=== PATIENT | female | born 1965 | race Caucasian/White ===

== ENCOUNTER 2025-04-29 09:18 | Outpatient (AMB) | payer OTHER, SELFPAY ==
--- NOTE | 2025-04-29 09:39 | MHC.OFFVIS ---
Intake Visit Reasons: 6 Months F/U Allergies No Known Allergies Allergy (Verified 04/26/25 11:12) HPI Comments Details: 59 y/o woman with severe GERD treated with H2 maribel and amitryptiline, h/o cervical spine surgery at [facility] in 2014, cervical spondyloarthritis, and left arm radicular pain syndrome. She was still having left-sided neck pain and sometime tingling and numbness and left arm and sometime in left leg also. Overall cyclobenzaprine was helping. [facility] Medical History (Updated 04/29/25 @ 09:48 by Hesham Arana MD) Obesity Type II diabetes mellitus Carpal tunnel syndrome of left wrist Peroneal neuropathy GERD (gastroesophageal reflux disease) Cervical spondyloarthritis Cervical radicular pain Stress Surgical History (Updated 04/26/25 @ 11:11 by Malu Boston MA) S/P cervical discectomy Review of Systems Const Details: Numbness and tinlging and pain in left arm and sometimes in left leg Physical Exam Neuro Other: Mental Status: Alert and oriented to person, place, and time. Normal attention. Normal spontaneous speech, fluency, and comprehension. No obvious issues with mood and memory. Affect is appropriate. Cranial Nerves: CN II: Visual connors full to confrontation, visual acuity intact. CN III, IV, : Pupils equal, round, reactive to light and accommodation. Extraocular movements are normal. CN V: Facial sensation is normal. CN VII: Facial movements symmetrical. CN VIII: Hearing intact to bedside conversation is normal. CN IX, X: Palate elevates symmetrically. CN XI: Shoulder shrug and head turn symmetrical. CN XII: Tongue midline without atrophy or fasciculations. Mild left deltoid and triceps weakness, ?give away type. DTRs are 1+ Extrapyramidal: Full facial expressions and blinking. No rigidity. Movements are appropriate with no tremor or abnormality. Speech: Normal; no dysarthria or tremor. Assessment & Plan Assessment & Plan (1) Cervical spondyloarthritis: Comment: NCV/EMG UE 07/01/17 Mild carpal tunnel syndrome on the right. NCV/EMG LE 05/29/17 Mild left peroneal neuropathy in the lower extremities. MRI C spine at [facility] in March 2015: straight curvature, mild to mod spondylitis mid cervical stenosis but no definite root compression. MRI C spine at [facility] in Nov 2015: s/p cervical decompressive surgery. No root compression or canal stenosis. Code(s): M47.812 - Spondylosis without myelopathy or radiculopathy, cervical region Category: Medical Qualifiers: Spinal osteoarthritis complication: without myelopathy or radiculopathy Qualified Code(s): M47.812 - Spondylosis without myelopathy or radiculopathy, cervical region (2) Cervical radicular pain: Code(s): M54.12 - Radiculopathy, cervical region Category: Medical Plan Impression: Chronic left sided neck and arm pain suggestive of cervical radicular syndrome with imgaing revealing spondyloarthritis type picture Rec: a: Conservative management b: Light arm and neck exercise regimen c: Cyclobenperine 10mg at night Medications: Refilled cyclobenzaprine 10 mg PO BEDTIME 90 tabs 1RF Coding Level of Care Code Est Pt Level 4 (23570) Diagnoses Spondylosis of cervical region without myelopathy or radiculopathy M47.812 Spinal osteoarthritis complication: without myelopathy or radiculopathy Cervical radicular pain M54.12
--- OUTSIDE RECORDS SUMMARY | 2025-04-29 09:46 | XMS_ITS ---
Author Name [facility] Organization Unknown History of Medication Use Medication Directions Dispensed Refills Start Date End Date Stat us citalopram (CeleXA) 20 MG tablet Take 20 mg by mouth daily. active Allergies Allergen Reaction Severity Comment Documented Date Source Statu s ICOSAPENT ETHYL OTHER (SEE COMMENTS) Dizziness 3 CCT active Problems Problem Status Onset Date Problem Type Date of Resoluti on Source Eustachian tube dysfunction, left active EncounterDiagnosisAct H HCCT Encounters Encounter Type Encounter Reason Primary Diagnosis Location Date Ambulatory Other specified disorders of eustachian tube, left ear [facility] 11/11/2022 Ambulatory Acute bronchitis , unspecified [facility] 10/27/2021 Care Team Organization Name Specialty Phone Email Start Date End Da te [facility] Puneet Hurley [facility] 11/11/2022 023 [facility] NO PCP Primary Care 11/11/2022 11/11/2022 [facility] PUNEET HURLEY Primary [facility] 11/11/2022 [facility] 10/28/2021 [facility] 10/27/2021 10/27/2021
--- OUTSIDE RECORDS SUMMARY | 2025-04-29 09:46 | XMS_ITS | Clinical Summary ---
Author Organization [facility] Address [address] [id number] Phone Care Team Providers Care Mri Tech Name Role Phone Puneet Hurley NP Primary Care Provider [phone] Allergies Active Allergy Reactions Criticality Noted Date Comments Icosapent Ethyl (Epa Ethyl Yeny) (Fish) Other (see comments) 09/27/2022 Other reaction(s): dizziness Dizziness Medications amitriptyline (ELAVIL) 100 MG tablet 05/13/2023 Active citalopram (CeleXA) 20 MG tablet 05/13/2023 Active cyclobenzaprine (FLEXERIL) 10 MG tablet 05/09/2023 Active Farxiga 10 MG tablet 07/03/2023 Active fenofibrate micronized (LOFIBRA) 134 MG capsule 05/09/2023 Active losartan (COZAAR) 50 MG tablet 06/25/2023 Active pantoprazole (PROTONIX) 40 MG EC tablet 05/15/2023 Active pregabalin (LYRICA) 75 MG capsule TAKE 1 CAPSULE BY MOUTH TWICE A DAY FOR 90 DAYS 06/28/2023 Active rosuvastatin (CRESTOR) 10 MG tablet 05/09/2023 Active Mounjaro 7.5 MG/0.5ML solution pen-injector 05/23/2023 Active losartan (Cozaar) 25 MG tablet Take 1 tablet (25 mg total) by mouth 1 (one) time each day 90 tablet 3 09/30/2024 6 Active Active Problems Problem Noted Date Diagnosed Date Anemia 07/08/2023 07/08/2023 Backache 07/08/2023 07/08/2023 Gastroesophageal reflux disease 07/08/2023 07/08/2023 Hypertensive disorder 07/08/2023 07/08/2023 Irritable bowel syndrome 07/08/2023 023 Sleep apnea 07/08/2023 07/08/2023 Immunizations Immunization Administration Dates Next Due Influenza Whole 06/25/2020 Pfizer SARS-COV-2 12/27/2020,12/05/2020 Family History Medical History Relation Comments Heart disease Father Relation Status Comments Father Social History Tobacco Use Types Packs/Day Years Used Date Smoking Tobacco: Never Passive Smoke Exposure: Never Smokeless Tobacco: Never Tobacco Cessation:Counseling Given: Not Answered Alcohol Use Standard Drinks/Week Comments Never 0 (1 standard drink = 0.6 oz pur e alcohol) Comments Unknown Sex and Gender Information Value Date Recorded Sex Assigned at Not on file Legal Sex Female 11:50 AM EDT Gender Identity Not on file Sexual Orientation Not on file Last Filed Vital Signs Vital Sign Reading Time Taken Comments Blood Pressure 124/82 09/30/2024 2:25 PM EST Pulse 88 09/30/2024 2:25 PM EST Temperature - - Respiratory Rate - - Oxygen Saturation 98% 09/30/2024 2:25 PM EST Inhaled Oxygen Concentration - - Weight 85.3 kg (188 lb) 09/30/2024 2:25 PM EST Height - - Body Mass Index - - Plan of Treatment Upcoming Encounters Date Type Department Care Team (Late st Contact Info) Description 10/04/2025 1:00 PM EST Office Visit [facility] [address] [phone] Som Vera MD [address] [phone] Health Maintenance Due Date Last Done Comments Breast Cancer Screening 1964 Pneumococcal Vaccine: 50+ Ye ars (1 of 2 - PCV) 1983 Colorectal Cancer Screening: Annual FOBT 2013 Colorectal Cancer Screening: Colonoscopy 2013 Colorectal Cancer Screening: Sigmoidoscopy 2013 Diabetes: Hemoglobin A1C 07/08/2023 Diabetes: Ophthalmology Exam 07/08/2023 Diabetes: Pedal Pulse Checked 07/08/2023 Diabetes: Sensory Foot Exam 07/08/2023 Diabetes: Visual Foot Exam 07/08/2023 Influenza Vaccine (#1) 2025 06/25/2020 Hepatitis B Vaccine Aged Out No longe r eligible based on patient's age to complete this topic Insurance [employer] Care Teams Mri Tech Relationship Specialty Start Date End Date Puneet Hurley NP [address] [place] [address] PCP - General Nurse Practitioner 07/08/23
--- OUTSIDE RECORDS SUMMARY | 2025-04-29 09:47 | XMS_ITS | Patient Health Record ---
Author Organization [facility] [address] Address [address] [place] [address] Care Team Providers Care Health Manager Name Role Phone ERIC RODAS Unavailable [phone] Allergies Allergen (clinical drug ingredient) Drug/Non Drug Allergy documented on EMR Reaction Allergy Type Onset Date Status icosapent ethyl Vascepa dizziness Drug Allergy A ctive Results Component Value Reference Range Notes Comp. Metabolic Panel (14)- Reviewed date:07/08/2024 04:59:38 PM Interpretation: Performing Lab:[facility], [address] [place] [address], [place], Phone - [phone], Director - Rob Notes/Report: Glucose 91 70-99 mg/dL BUN 17 6-24 mg/dL Creatinine 1.16 0.57-1.00 mg/dL eGFR 54 >59 mL/min/1.73 BUN/Creatinine Ratio 15 9-23 Sodium 143 134-144 mmol/L Potassium 4.3 3.5-5.2 mmol/L Chloride 101 96-106 mmol/L Carbon Dioxide, Total 27 20-29 mmol/L Calcium 9.8 8.7-10.2 mg/dL Protein, Total 7.5 6.0-8.5 g/dL Albumin 4.4 3.8-4.9 g/dL Globulin, Total 3.1 1.5-4.5 g/dL Bilirubin, Total 0.4 0.0-1.2 mg/dL Alkaline Phosphatase 84 44-121 IU/L AST (SGOT) 21 0-40 IU/L ALT (SGPT) 7 0-32 IU/L Lipid Panel-[id number] Reviewed date:07/08/2024 04:59:38 PM Interpretation: Performing Lab:[facility] [place], [address] [place] [address], Phone - [phone], Director - MDJodry Notes/Report: Cholesterol, Total 125 100-199 mg/dL Triglycerides 96 0-149 mg/dL HDL Cholesterol 61 >39 mg/dL VLDL Cholesterol Tristen 18 5-40 mg/dL LDL Chol Calc (NIH) 46 0-99 mg/dL Calcitriol(1,25 di-OH Vit D) -[id number] Reviewed date:07/08/2024 04:59:38 PM Interpretation: Performing Lab:[facility] [place], [address] [place] [address], [place], Phone - [phone], Director - MDJodry Notes/Report: Calcitriol(1,25 di-OH Vit D) 59.0 24.8-81.5 pg /mL CBC With Differential/Platel et-[id number] Reviewed date:07/08/2024 04:59:38 PM Interpretation: Performing Lab:[facility] [place], [address] [place] [address], Phone - [phone], Director - MDNubiay Notes/Report: WBC 4.9 3.4-10.8 x10E3/uL RBC 4.87 3.77-5.28 x10E6/uL Hemoglobin 13.2 11.1-15.9 g/dL Hematocrit 41.9 34.0-46.6 % MCV 86 79-97 fL MCH 27.1 26.6-33.0 pg MCHC 31.5 31.5-35.7 g/dL RDW 14.0 11.7-15.4 % Platelets 314 150-450 x10E3/uL Neutrophils 40 Not Estab. % Lymphs 48 Not Estab. % Monocytes 8 Not Estab. % Eos 3 Not Estab. % Basos 1 Not Estab. % Neutrophils (Absolute) 2.0 1.4-7.0 x10E3/uL Lymphs (Absolute) 2.3 0.7-3.1 x10E3/uL Monocytes(Absolute) 0.4 0.1-0.9 x10E3/uL Eos (Absolute) 0.2 0.0-0.4 x10E3/uL Baso (Absolute) 0.1 0.0-0.2 x10E3/uL Immature Granulocytes 0 Not Estab. % Immature Grans (Abs) 0.0 0.0-0.1 x10E3/uL [id number] Reviewed date:07/08/2024 04:59:38 PM Interpretation: Performing Lab:[facility] [address], Phone - [phone], Director - Rob Notes/Report: TSH 2.150 0.450-4.500 uIU/mL Urinalysis, Complete-[id number] Reviewed date:07/08/2024 04:59:38 PM Interpretation: Performing Lab:[facility] [place], [address] [place] [address], Phone - [phone], Director - Rob Notes/Report: Specific Dawson 1.021 1.005-1.030 pH 6.0 5.0-7.5 Urine-Color Yellow Yellow Appearance Clear Clear WBC Esterase 2+ Negative Protein Trace Negative/Trace Glucose 3+ Negative Ketones Negative Negative Occult Blood Negative Negative Bilirubin Negative Negative Urobilinogen,Semi-Qn 0.2 0.2-1.0 mg/dL Nitrite, Urine Negative Negative Microscopic Examination See below: Micr oscopic was indicated and was performed. WBC 6-10 0 - 5 /hpf RBC None seen 0 - 2 /hpf Epithelial Cells (non renal) 0-10 0 - 10 /hpf Casts None seen None seen /lpf Bacteria None seen None seen/Few Hemoglobin [id number] Reviewed date:07/08/2024 04:59:38 PM Interpretation: Performing Lab:[facility] [place], [address] [place] [address], Phone - [phone], Director - Rob Notes/Report: Hemoglobin A1c 6.2 4.8-5.6 % . Prediabetes: 5.7 - 6.4 Diabetes: >6.4 Glycemic control for adults with diabetes: <7.0 DR Murdock Routine 2 Views Reviewed date:05/06/2024 09:59:04 AM Interpretation: Performing Lab: Notes/Report: Original Ordering Provider: ERIC RODAS NP [facility] Reason For Referral No Information Medications Medication SIG (Take, Route, Frequency, Duration) Notes Start Date End Date Status FreeStyle Lite Test - CHECK BLOOD SUGAR DAILY DIRECTED Active oxyCODONE HCl 5 MG 1 tablet as needed p rn severe pain Orally every 4-6 hrs; Duration: 10 days 05/12/2024 Not-Taking Albuterol Sulfate HFA 108 (90 Base) MCG/ACT INHALE 1 PUFF INTO THE LUNGS EVERY 4 HOURS NEEDED FOR 30 DAYS; Duration: 30 Active metFORMIN HCl 1000 mg TAKE 1 TABLET TWIC E A DAY WITH MEALS Not-Taking Mounjaro 7.5 MG/0.5ML 7.5mg Subcutaneous weekly; Duration: 30 days Active Mounjaro 7.5 MG/0.5ML 7.5mg Subcutaneous weekly; Duration: 30 days Not-Taking Fenofibrate 134 MG 1 capsule with a marcos l Orally Once a day; Duration: 90 days Active Mounjaro 5 MG/0.5ML 5mg Subcutaneous weekly; Duration: 90 days 10/07/2023 Not-Taking Mounjaro 7.5 MG/0.5ML INJECT 7.5 MG UNDE R THE SKIN WEEKLY Active FreeStyle Lancets - CHECK BLOOD SUGAR IN VITRO DAILY Active Rosuvastatin Calcium 10 mg TAKE 1 TABLET DAILY Active Farxiga 10 mg TAKE 1 TABLET DAILY Active Citalopram Hydrobromide 20 mg TAKE 1 TABLET DAILY Active Fenofibrate Micronized 134 mg TAKE 1 CAPSULE DAILY WITH A MEAL Active Pregabalin 75 mg TAKE 1 CAPSULE TWICE A DAY 04/28/2025 Active LORazepam 0.5 MG 1 tablet 30 minutes prior to diagnostic procedure or flying, may repeat x 1 per effect 30 minutes later Orally Once a day; Duration: 1 days 03/24/2025 Active Losartan Potassium 25 MG 1 tablet Orally Once a day Not-Taking Cyclobenzaprine HCl 10 MG 1 tablet at be dtime as needed Orally Once a day Active Amitriptyline HCl 100 MG 1 tablet at bed time Orally Once a day Active FreeStyle Lite Test Strips as directed check blood sugar Dx:e11.9 in vitro daily; Duration: 90 days 02/02/2022 Active Mounjaro 10 MG/0.5ML INJECT 10 MG UNDER THE SKIN WEEKLY Active Pantoprazole Sodium 40 MG 1 tablet Orall y Once a day Active Social History Tobacco Use: Social History Observation Description Date Details (start date - stop date) Never Smoker NA - NA Tobacco Use/Smoking Question Answer Notes Are you a nonsmoker Alcohol Screen (Audit-C) Question Answer Notes Did you have a drink contain ing alcohol in the past year? Yes How often did you have a dri nk containing alcohol in the past year? 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) Active confirmed Problem Vitamin D deficiency (69808351) Vitamin D deficiency, unspecified (E55.9) Active confirmed Problem Obesity due to exces s calories (084446780) Other obesity due to excess calories (E66.09) Active confirmed Problem Tinnitus (45738781) Tinnitus, un specified ear (H93.19) Active confirmed Problem Essential hypertension (84921371) Essential (primary) hypertension (I10) Active confirmed Problem Adult health examination (594803764) Encounter for general adult medical examination without abnormal findings (Z00.00) Active confirmed Problem Hyperlipidaemia (27828885) Hyperlipidemia, unspecified hyperlipidemia type (E78.5) Active confirmed Problem Anxiety (10266021) Anxiety (F41.9) Active confi rmed Problem Hypothyroidism (47340044) Hypothyroidism, unspecified type (E03.9) Active confirmed Problem Vitamin D deficiency (62168935) Vitamin D deficiency (E55.9) Active confirmed Problem Screening for malignant neoplasm of breast (645667471) Breast cancer screening by mammogram (Z12.31) Active confirmed Problem Type II diabetes mellitus without complication (215653057) Type 2 diabetes mellitus without complication, without long-term current use of insulin (E11.9) Active confirmed Problem Chronic kidney disease stage 3A (disorder) (468485200) Chronic kidney disease, stage 3a (N18.31) Active confirmed Problem Body mass index 30.0 0 to 34.99 (259663570375195) Body mass index [BMI] 33.0-33.9, adult (Z68.33) Active confirmed Problem Gastroesophageal reflux disease with esophagitis (disorder) (431700866) Gastroesophageal reflux disease with esophagitis without hemorrhage (K21.00) Active confirmed Problem Migraine without aura, not refractory (575265331) Migraine without aura and without status migrainosus, not intractable (G43.009) Active confirmed Problem Mild major depression, single episode (67782443) Current mild episode of major depressive disorder without prior episode (F32.0) Active confirmed Problem Bilateral tinnitus (5495458751466) Tinnitus of both ears (H93.13) Active confirmed Problem Hypertriglyceridemia (678174450) Hypertriglyceridemia (E78.1) Active confirmed Problem Body mass index 30+ - obesity (378609558) BMI 30.0-30.9,adult (Z68.30) Active confirmed Problem Avitaminosis D (87235663) Avitaminosis D (E55.9) Active confirmed Vital Signs Heart Rate 88 /min 02/03/2025 Blood pressure diastolic 66 mm Hg 02/03/2025 Oximetry 97 % 02/03/2025 Height 66 in 02/03/2025 Blood pressure systolic 110 mm Hg 02/03/2025 Weight 187 lbs 02/03/2025 BMI 30.18 kg/m2 02/03/2025 Encounters Encounter Location Date Provider Diagnosis [facility] [address] [address] 05/06/2024 ERIC RODAS 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 ; Other specified bacterial agents as the cause of diseases classified elsewhere B96.89 ; Psoas abscess, right K68.12 ; Peripherally inserted central catheter (PICC) in place Z45.2 ; Acute cough R05.1 and Acute COVID-[address] [facility] [address] [place] [address] 05/23/2024 ERIC RODAS Other specified bacterial agents as the cause of diseases classified elsewhere B96.89 ; 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 ; Psoas abscess, right K68.12 ; Peripherally inserted central catheter (PICC) in place Z45.2 and Acute COVID-19 U07.[address] [facility] [address] [place] [address] 06/27/2024 ERIC RODAS Other specified bacterial agents as the cause of diseases classified elsewhere B96.89 ; 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 ; Psoas abscess, right K68.12 and Peripherally inserted central catheter (PICC) in place Z45.2 [facility] [address] [address] 07/08/2024 ERIC RODAS Type 2 diabetes gus itus without complication, without long-term current use of insulin E11.9 ; Annual physical exam Z00.00 ; Migraine without aura and without status migrainosus, not intractable G43.009 ; Current mild episode of major depressive disorder without prior episode F32.0 ; Other obesity due to excess calories E66.09 ; Essential (primary) hypertension I10 ; Chronic kidney disease, stage 3a N18.31 ; Renal cyst N28.1 ; Peripherally inserted central catheter (PICC) in place Z45.2 ; Other specified bacterial agents as the cause of diseases classified elsewhere B96.89 ; 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 and Psoas abscess, right K68.12 [facility] [address] [address] 08/10/2024 ERIC RODAS Irritation of left e ye H57.89 [facility] [address] 10/08/2024 ERIC RODAS Type 2 diabetes gus itus without complication, without long-term current use of insulin E11.9 ; Migraine without aura and without status migrainosus, not intractable G43.009 ; Current mild episode of major depressive disorder without prior episode F32.0 ; Other obesity due to excess calories E66.09 ; Essential (primary) hypertension I10 ; Chronic kidney disease, stage 3a N18.31 ; Other specified bacterial agents as the cause of diseases classified elsewhere B96.89 ; 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 ; Psoas abscess, right K68.12 and Breast cancer screening by mammogram Z12.31 [facility] [address] [address] 02/03/2025 ERIC RODAS Type 2 diabetes gus itus without complication, without long-term current use of insulin E11.9 ; Migraine without aura and without status migrainosus, not intractable G43.009 ; Current mild episode of major depressive disorder without prior episode F32.0 ; Other obesity due to excess calories E66.09 ; Essential (primary) hypertension I10 ; Chronic kidney disease, stage 3a N18.31 ; 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 ; Encounter for examination of blood pressure without abnormal findings Z01.30 ; Breast cancer screening by mammogram Z12.31 and Encounter for screening for osteoporosis Z13.820 [facility] [address] 05/05/2024 ERIC [address]ORHOT [facility] [address] [place] [address] 05/05/2024 ERIC BORHOT [facility] [address] [place] [address] 05/06/2024 ERIC BORHOT [facility] [address] [place] [address] 05/19/2024 ERIC [place]ORHOT [facility] [address] [place] [address] 05/26/2024 ERIC BORHOT [facility] [address] [place] [address] 05/26/2024 ERIC BORHOT [facility] [address] [place] [address] 06/22/2024 ERIC BORHOT [facility] [address] [place] [address] 06/23/2024 ERIC BORHOT [facility] [address] [place] [address] 08/10/2024 ERIC BORHOT [facility] [address] [place] [address] 04/27/2025 ERIC BORHOT [facility] [address] [place] [address] 05/12/2024 ERIC BORHOT [facility] [address] [place] [address] 06/16/2024 ERIC BORHOT [facility] [address] [place] [address] 06/16/2024 ERIC BORHOT [facility] [address] [place] [address] 06/17/2024 ERIC BORHOT [facility] [address] [place] [address] 06/18/2024 ERIC BORHOT [facility] [address] [place] [address] 07/06/2024 ERIC BORHOT [facility] [address] [place] [address] 07/06/2024 ERIC BORHOT [facility] [address] [address] 07/06/2024 ERIC BORHOT [facility] [address] [address] 08/24/2024 ERIC RODAS Type 2 diabetes gus itus without complication, without long-term current use of insulin E11.9 [facility] [address] [address] 09/14/2024 ERIC BORHOT [facility] [address] [address] 09/14/2024 ERIC BORHOT [facility] [address] [address] 10/23/2024 ERIC RODAS Type 2 diabetes gus itus without complication, without long-term current use of insulin E11.9 [facility] [address] [address] 11/05/2024 ERIC ARMENDARIZHOT [facility] [address] [address] 03/24/2025 ERIC ARMENDARIZHOT [facility] [address] [address] 03/24/2025 ERIC BORHOT [facility] [address] [address] 04/28/2025 ERIC [facility]ARIZHOT [facility] [address] [address] 04/28/2025 ERIC RODAS Assessments Encounter Date Diagnosis (ICD Code) Assessment Notes Treatment Notes Treatment Clinical Notes Section Notes 05/06/2024 Other specified bacterial agents as the cause of diseases classified elsewhere (ICD-10 - B96.89) Continue IV vancomycin via PICC until June 10 Weekly CBC and CMP arrange through visiting nurses and infectious disease Given recent lengthy hospitalization we will get a chest x-ray to rule out pneumonia Respiratory PCR swab positive for acute COVID-19 Discussed supportive care and antivirals Of note, some information is being carried forward from prior records for informational purposes only and is being cited so that efficiency, safety and quality of the patient's care is not compromised This note was prepared using voice recognition software and direct typing Please excuse inadvertent cheesemaking laborer or typing errors, or uncorrected word substitutions Although every attempt has been made by the provider to proofread this document, occasional misspellings and typographical errors may still be present Due to the previous pandemic, and the use of personal protective equipment (PPE) This may decrease voice recognition accuracy Inadvertent cheesemaking laborer errors may occur 05/06/2024 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) Continue IV vancomycin via PICC until June 10 Weekly CBC and CMP arrange through visiting nurses and infectious disease Given recent lengthy hospitalization we will get a chest x-ray to rule out pneumonia Respiratory PCR swab positive for acute COVID-19 Discussed supportive care and antivirals Of note, some information is being carried forward from prior records for informational purposes only and is being cited so that efficiency, safety and quality of the patient's care is not compromised This note was prepared using voice recognition software and direct typing Please excuse inadvertent cheesemaking laborer or typing errors, or uncorrected word substitutions Although every attempt has been made by the provider to proofread this document, occasional misspellings and typographical errors may still be present Due to the previous pandemic, and the use of personal protective equipment (PPE) This may decrease voice recognition accuracy Inadvertent cheesemaking laborer errors may occur 05/23/2024 Other specified bacterial agents as the cause of diseases classified elsewhere (ICD-10 - B96.89) Continue IV 2 g of ceftriaxone which was recently switched from vancomycin via PICC until June 10 Weekly CBC and CMP arrange through visiting nurses and infectious disease Will be seeing infectious disease again on June 16, recently saw them on May 19 We will work on short-term disability paperwork Of note, some information is being carried forward from prior records for informational purposes only and is being cited so that efficiency, safety and quality of the patient's care is not compromised This note was prepared using voice recognition software and direct typing Please excuse inadvertent cheesemaking laborer or typing errors, or uncorrected word substitutions Although every attempt has been made by the provider to proofread this document, occasional misspellings and typographical errors may still be present Due to the previous pandemic, and the use of personal protective equipment (PPE) This may decrease voice recognition accuracy Inadvertent cheesemaking laborer errors may occur 06/27/2024 Other specified bacterial agents as the cause of diseases classified elsewhere (ICD-10 - B96.89) Continue IV cefazolin through PICC line Continue seeing ID outpatient with lab monitoring Short-term disability also paperwork was completed today Time spent 60 minutes Coordination of care, chart review, paperwork filled out and filed in EMR Of note, some information is being carried forward from prior records for informational purposes only and is being cited so that efficiency, safety and quality of the patient's care is not compromised This note was prepared using voice recognition software and direct typing Please excuse inadvertent cheesemaking laborer or typing errors, or uncorrected word substitutions Although every attempt has been made by the provider to proofread this document, occasional misspellings and typographical errors may still be present Due to the previous pandemic, and the use of personal protective equipment (PPE) This may decrease voice recognition accuracy Inadvertent cheesemaking laborer errors may occur 07/08/2024 Type 2 diabetes mellitus without complication, without long-term current use of insulin (ICD-10 - E11.9) Acute Concerns/Problem List: 07/08/2024 Will increase Mounjaro to 7.5 mg Excellent glycemic control with A1c of 6.2 Other labs are stable tommorow Scheduled for MRI of the spine to reassess intraspinal epidural abscess and osteomyelitis PICC line still in place likely will be DC'd soon as long as her antibiotics are completed per infectious disease Of note, some information is being carried forward from prior records for informational purposes only and is being cited so that efficiency, safety and quality of the patient's care is not compromised This note was prepared using voice recognition software and direct typing Please excuse inadvertent cheesemaking laborer or typing errors, or uncorrected word substitutions Although every attempt has been made by the provider to proofread this document, occasional misspellings and typographical errors may still be present Due to the previous pandemic, and the use of personal protective equipment (PPE) This may decrease voice recognition accuracy Inadvertent cheesemaking laborer errors may occur 08/10/2024 Irritation of left eye (ICD-10 - H57.89) She would benefit from a fluorescein and Pulido lamp exam to rule out abrasion Unlikely though I suspect irritation could be allergy component There is no overt signs of infection or hyperemia I discussed using some antihistamine eyedrops There is no visual loss No signs of iritis or Uveitis Should follow-up with eye doctor if not improving 08/24/2024 Type 2 diabetes mellitus without complication, without long-term current use of insulin (ICD-10 - E11.9) 10/08/2024 Type 2 diabetes mellitus without complication, without long-term current use of insulin (ICD-10 - E11.9) Acute Concerns/Problem List: 10/08/2024 Will increase to 10 mg of Mounjaro Excellent glycemic control, A1c today 6.0 CKD stable, losartan 25 mg as well as SGLT2 Followed by nephrology _update mammography please Of note, some information is being carried forward from prior records for informational purposes only and is being cited so that efficiency, safety and quality of the patient's care is not compromised This note was prepared using voice recognition software and direct typing Please excuse inadvertent cheesemaking laborer or typing errors, or uncorrected word substitutions Although every attempt has been made by the provider to proofread this document, occasional misspellings and typographical errors may still be present Due to the previous pandemic, and the use of personal protective equipment (PPE) This may decrease voice recognition accuracy Inadvertent cheesemaking laborer errors may occur 10/23/2024 Type 2 diabetes mellitus without complication, without long-term current use of insulin (ICD-10 - E11.9) 02/03/2025 Type 2 diabetes mellitus without complication, without long-term current use of insulin (ICD-10 - E11.9) Acute Concerns/Problem List: 02/03/2025 Cont.10 mg of Mounjaro Excellent glycemic control, A1c today 5.7 CKD stable, Farxiga 10mg Followed by nephrology _update bone density Hold off on losartan Mammography 11/2024, [facility], BIRADS-2 benign Will see her back in the fall with labs and a CPE Of note, some information is being carried forward from prior records for informational purposes only and is being cited so that efficiency, safety and quality of the patient's care is not compromised This note was prepared using voice recognition software and direct typing Please excuse inadvertent cheesemaking laborer or typing errors, or uncorrected word substitutions Although every attempt has been made by the provider to proofread this document, occasional misspellings and typographical errors may still be present Due to the previous pandemic, and the use of personal protective equipment (PPE) This may decrease voice recognition accuracy Inadvertent cheesemaking laborer errors may occur 02/03/2025 Migraine without aura and without status migrainosus, not intractable (ICD-10 - G43.009) Acute Concerns/Problem List: 02/03/2025 Cont.10 mg of Mounjaro Excellent glycemic control, A1c today 5.7 CKD stable, Farxiga 10mg Followed by nephrology _update bone density Hold off on losartan Mammography 11/2024, [facility], BIRADS-2 benign Will see her back in the fall with labs and a CPE Of note, some information is being carried forward from prior records for informational purposes only and is being cited so that efficiency, safety and quality of the patient's care is not compromised This note was prepared using voice recognition software and direct typing Please excuse inadvertent cheesemaking laborer or typing errors, or uncorrected word substitutions Although every attempt has been made by the provider to proofread this document, occasional misspellings and typographical errors may still be present Due to the previous pandemic, and the use of personal protective equipment (PPE) This may decrease voice recognition accuracy Inadvertent cheesemaking laborer errors may occur 10/08/2024 Migraine without aura and without status migrainosus, not intractable (ICD-10 - G43.009) Acute Concerns/Problem List: 10/08/2024 Will increase to 10 mg of Mounjaro Excellent glycemic control, A1c today 6.0 CKD stable, losartan 25 mg as well as SGLT2 Followed by nephrology _update mammography please Of note, some information is being carried forward from prior records for informational purposes only and is being cited so that efficiency, safety and quality of the patient's care is not compromised This note was prepared using voice recognition software and direct typing Please excuse inadvertent cheesemaking laborer or typing errors, or uncorrected word substitutions Although every attempt has been made by the provider to proofread this document, occasional misspellings and typographical errors may still be present Due to the previous pandemic, and the use of personal protective equipment (PPE) This may decrease voice recognition accuracy Inadvertent cheesemaking laborer errors may occur 07/08/2024 Annual physical exam (ICD-10 - Z00.00) Acute Concerns/Problem List: 07/08/2024 Will increase Mounjaro to 7.5 mg Excellent glycemic control with A1c of 6.2 Other labs are stable tommorow Scheduled for MRI of the spine to reassess intraspinal epidural abscess and osteomyelitis PICC line still in place likely will be DC'd soon as long as her antibiotics are completed per infectious disease Of note, some information is being carried forward from prior records for informational purposes only and is being cited so that efficiency, safety and quality of the patient's care is not compromised This note was prepared using voice recognition software and direct typing Please excuse inadvertent cheesemaking laborer or typing errors, or uncorrected word substitutions Although every attempt has been made by the provider to proofread this document, occasional misspellings and typographical errors may still be present Due to the previous pandemic, and the use of personal protective equipment (PPE) This may decrease voice recognition accuracy Inadvertent cheesemaking laborer errors may occur 07/08/2024 Migraine without aura and without status migrainosus, not intractable (ICD-10 - G43.009) Acute Concerns/Problem List: 07/08/2024 Will increase Mounjaro to 7.5 mg Excellent glycemic control with A1c of 6.2 Other labs are stable tommorow Scheduled for MRI of the spine to reassess intraspinal epidural abscess and osteomyelitis PICC line still in place likely will be DC'd soon as long as her antibiotics are completed per infectious disease Of note, some information is being carried forward from prior records for informational purposes only and is being cited so that efficiency, safety and quality of the patient's care is not compromised This note was prepared using voice recognition software and direct typing Please excuse inadvertent cheesemaking laborer or typing errors, or uncorrected word substitutions Although every attempt has been made by the provider to proofread this document, occasional misspellings and typographical errors may still be present Due to the previous pandemic, and the use of personal protective equipment (PPE) This may decrease voice recognition accuracy Inadvertent cheesemaking laborer errors may occur 06/27/2024 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) Continue IV cefazolin through PICC line Continue seeing ID outpatient with lab monitoring Short-term disability also paperwork was completed today Time spent 60 minutes Coordination of care, chart review, paperwork filled out and filed in EMR Of note, some information is being carried forward from prior records for informational purposes only and is being cited so that efficiency, safety and quality of the patient's care is not compromised This note was prepared using voice recognition software and direct typing Please excuse inadvertent cheesemaking laborer or typing errors, or uncorrected word substitutions Although every attempt has been made by the provider to proofread this document, occasional misspellings and typographical errors may still be present Due to the previous pandemic, and the use of personal protective equipment (PPE) This may decrease voice recognition accuracy Inadvertent cheesemaking laborer errors may occur 05/06/2024 Psoas abscess, right (ICD-10 - K68.12) Continue IV vancomycin via PICC until June 10 Weekly CBC and CMP arrange through visiting nurses and infectious disease Given recent lengthy hospitalization we will get a chest x-ray to rule out pneumonia Respiratory PCR swab positive for acute COVID-19 Discussed supportive care and antivirals Of note, some information is being carried forward from prior records for informational purposes only and is being cited so that efficiency, safety and quality of the patient's care is not compromised This note was prepared using voice recognition software and direct typing Please excuse inadvertent cheesemaking laborer or typing errors, or uncorrected word substitutions Although every attempt has been made by the provider to proofread this document, occasional misspellings and typographical errors may still be present Due to the previous pandemic, and the use of personal protective equipment (PPE) This may decrease voice recognition accuracy Inadvertent cheesemaking laborer errors may occur 05/23/2024 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) Continue IV 2 g of ceftriaxone which was recently switched from vancomycin via PICC until June 10 Weekly CBC and CMP arrange through visiting nurses and infectious disease Will be seeing infectious disease again on June 16, recently saw them on May 19 We will work on short-term disability paperwork Of note, some information is being carried forward from prior records for informational purposes only and is being cited so that efficiency, safety and quality of the patient's care is not compromised This note was prepared using voice recognition software and direct typing Please excuse inadvertent cheesemaking laborer or typing errors, or uncorrected word substitutions Although every attempt has been made by the provider to proofread this document, occasional misspellings and typographical errors may still be present Due to the previous pandemic, and the use of personal protective equipment (PPE) This may decrease voice recognition accuracy Inadvertent cheesemaking laborer errors may occur 05/06/2024 Peripherally inserted central catheter (PICC) in place (ICD-10 - Z45.2) Continue IV vancomycin via PICC until June 10 Weekly CBC and CMP arrange through visiting nurses and infectious disease Given recent lengthy hospitalization we will get a chest x-ray to rule out pneumonia Respiratory PCR swab positive for acute COVID-19 Discussed supportive care and antivirals Of note, some information is being carried forward from prior records for informational purposes only and is being cited so that efficiency, safety and quality of the patient's care is not compromised This note was prepared using voice recognition software and direct typing Please excuse inadvertent cheesemaking laborer or typing errors, or uncorrected word substitutions Although every attempt has been made by the provider to proofread this document, occasional misspellings and typographical errors may still be present Due to the previous pandemic, and the use of personal protective equipment (PPE) This may decrease voice recognition accuracy Inadvertent cheesemaking laborer errors may occur 05/23/2024 Psoas abscess, right (ICD-10 - K68.12) Continue IV 2 g of ceftriaxone which was recently switched from vancomycin via PICC until June 10 Weekly CBC and CMP arrange through visiting nurses and infectious disease Will be seeing infectious disease again on June 16, recently saw them on May 19 We will work on short-term disability paperwork Of note, some information is being carried forward from prior records for informational purposes only and is being cited so that efficiency, safety and quality of the patient's care is not compromised This note was prepared using voice recognition software and direct typing Please excuse inadvertent cheesemaking laborer or typing errors, or uncorrected word substitutions Although every attempt has been made by the provider to proofread this document, occasional misspellings and typographical errors may still be present Due to the previous pandemic, and the use of personal protective equipment (PPE) This may decrease voice recognition accuracy Inadvertent cheesemaking laborer errors may occur 06/27/2024 Psoas abscess, right (ICD-10 - 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.12) Continue IV cefazolin through PICC line Continue seeing ID outpatient with lab monitoring Short-term disability also paperwork was completed today Time spent 60 minutes Coordination of care, chart review, paperwork filled out and filed in EMR Of note, some information is being carried forward from prior records for informational purposes only and is being cited so that efficiency, safety and quality of the patient's care is not compromised This note was prepared using voice recognition software and direct typing Please excuse inadvertent cheesemaking laborer or typing errors, or uncorrected word substitutions Although every attempt has been made by the provider to proofread this document, occasional misspellings and typographical errors may still be present Due to the previous pandemic, and the use of personal protective equipment (PPE) This may decrease voice recognition accuracy Inadvertent cheesemaking laborer errors may occur 07/08/2024 Current mild episode of major depressive disorder without prior episode (ICD-10 - F32.0) Acute Concerns/Problem List: 07/08/2024 Will increase Mounjaro to 7.5 mg Excellent glycemic control with A1c of 6.2 Other labs are stable melquiades Scheduled for MRI of the spine to reassess intraspinal epidural abscess and osteomyelitis PICC line still in place likely will be DC'd soon as long as her antibiotics are completed per infectious disease Of note, some information is being carried forward from prior records for informational purposes only and is being cited so that efficiency, safety and quality of the patient's care is not compromised This note was prepared using voice recognition software and direct typing Please excuse inadvertent cheesemaking laborer or typing errors, or uncorrected word substitutions Although every attempt has been made by the provider to proofread this document, occasional misspellings and typographical errors may still be present Due to the previous pandemic, and the use of personal protective equipment (PPE) This may decrease voice recognition accuracy Inadvertent cheesemaking laborer errors may occur 10/08/2024 Current mild episode of major depressive disorder without prior episode (ICD-10 - F32.0) Acute Concerns/Problem List: 10/08/2024 Will increase to 10 mg of Mounjaro Excellent glycemic control, A1c today 6.0 CKD stable, losartan 25 mg as well as SGLT2 Followed by nephrology _update mammography please Of note, some information is being carried forward from prior records for informational purposes only and is being cited so that efficiency, safety and quality of the patient's care is not compromised This note was prepared using voice recognition software and direct typing Please excuse inadvertent cheesemaking laborer or typing errors, or uncorrected word substitutions Although every attempt has been made by the provider to proofread this document, occasional misspellings and typographical errors may still be present Due to the previous pandemic, and the use of personal protective equipment (PPE) This may decrease voice recognition accuracy Inadvertent cheesemaking laborer errors may occur 02/03/2025 Current mild episode of major depressive disorder without prior episode (ICD-10 - F32.0) Acute Concerns/Problem List: 02/03/2025 Cont.10 mg of Mounjaro Excellent glycemic control, A1c today 5.7 CKD stable, Farxiga 10mg Followed by nephrology _update bone density Hold off on losartan Mammography 11/2024, [facility], BIRADS-2 benign Will see her back in the fall with labs and a CPE Of note, some information is being carried forward from prior records for informational purposes only and is being cited so that efficiency, safety and quality of the patient's care is not compromised This note was prepared using voice recognition software and direct typing Please excuse inadvertent cheesemaking laborer or typing errors, or uncorrected word substitutions Although every attempt has been made by the provider to proofread this document, occasional misspellings and typographical errors may still be present Due to the previous pandemic, and the use of personal protective equipment (PPE) This may decrease voice recognition accuracy Inadvertent cheesemaking laborer errors may occur 02/03/2025 Other obesity due to excess calories (ICD-10 - E66.09) Acute Concerns/Problem List: 02/03/2025 Cont.10 mg of Mounjaro Excellent glycemic control, A1c today 5.7 CKD stable, Farxiga 10mg Followed by nephrology _update bone density Hold off on losartan Mammography 11/2024, [facility], BIRADS-2 benign Will see her back in the fall with labs and a CPE Of note, some information is being carried forward from prior records for informational purposes only and is being cited so that efficiency, safety and quality of the patient's care is not compromised This note was prepared using voice recognition software and direct typing Please excuse inadvertent cheesemaking laborer or typing errors, or uncorrected word substitutions Although every attempt has been made by the provider to proofread this document, occasional misspellings and typographical errors may still be present Due to the previous pandemic, and the use of personal protective equipment (PPE) This may decrease voice recognition accuracy Inadvertent cheesemaking laborer errors may occur 10/08/2024 Other obesity due to excess calories (ICD-10 - E66.09) Acute Concerns/Problem List: 10/08/2024 Will increase to 10 mg of Mounjaro Excellent glycemic control, A1c today 6.0 CKD stable, losartan 25 mg as well as SGLT2 Followed by nephrology _update mammography please Of note, some information is being carried forward from prior records for informational purposes only and is being cited so that efficiency, safety and quality of the patient's care is not compromised This note was prepared using voice recognition software and direct typing Please excuse inadvertent cheesemaking laborer or typing errors, or uncorrected word substitutions Although every attempt has been made by the provider to proofread this document, occasional misspellings and typographical errors may still be present Due to the previous pandemic, and the use of personal protective equipment (PPE) This may decrease voice recognition accuracy Inadvertent cheesemaking laborer errors may occur 07/08/2024 Other obesity due to excess calories (ICD-10 - E66.09) Acute Concerns/Problem List: 07/08/2024 Will increase Mounjaro to 7.5 mg Excellent glycemic control with A1c of 6.2 Other labs are stable tommorow Scheduled for MRI of the spine to reassess intraspinal epidural abscess and osteomyelitis PICC line still in place likely will be DC'd soon as long as her antibiotics are completed per infectious disease Of note, some information is being carried forward from prior records for informational purposes only and is being cited so that efficiency, safety and quality of the patient's care is not compromised This note was prepared using voice recognition software and direct typing Please excuse inadvertent cheesemaking laborer or typing errors, or uncorrected word substitutions Although every attempt has been made by the provider to proofread this document, occasional misspellings and typographical errors may still be present Due to the previous pandemic, and the use of personal protective equipment (PPE) This may decrease voice recognition accuracy Inadvertent cheesemaking laborer errors may occur 06/27/2024 Peripherally inserted central catheter (PICC) in place (ICD-10 - Z45.2) Continue IV cefazolin through PICC line Continue seeing ID outpatient with lab monitoring Short-term disability also paperwork was completed today Time spent 60 minutes Coordination of care, chart review, paperwork filled out and filed in EMR Of note, some information is being carried forward from prior records for informational purposes only and is being cited so that efficiency, safety and quality of the patient's care is not compromised This note was prepared using voice recognition software and direct typing Please excuse inadvertent cheesemaking laborer or typing errors, or uncorrected word substitutions Although every attempt has been made by the provider to proofread this document, occasional misspellings and typographical errors may still be present Due to the previous pandemic, and the use of personal protective equipment (PPE) This may decrease voice recognition accuracy Inadvertent cheesemaking laborer errors may occur 05/23/2024 Peripherally inserted central catheter (PICC) in place (ICD-10 - Z45.2) Continue IV 2 g of ceftriaxone which was recently switched from vancomycin via PICC until June 10 Weekly CBC and CMP arrange through visiting nurses and infectious disease Will be seeing infectious disease again on June 16, recently saw them on May 19 We will work on short-term disability paperwork Of note, some information is being carried forward from prior records for informational purposes only and is being cited so that efficiency, safety and quality of the patient's care is not compromised This note was prepared using voice recognition software and direct typing Please excuse inadvertent cheesemaking laborer or typing errors, or uncorrected word substitutions Although every attempt has been made by the provider to proofread this document, occasional misspellings and typographical errors may still be present Due to the previous pandemic, and the use of personal protective equipment (PPE) This may decrease voice recognition accuracy Inadvertent cheesemaking laborer errors may occur 05/06/2024 Acute cough (ICD-10 - R05.1) Continue IV vancomycin via PICC until June 10 Weekly CBC and CMP arrange through visiting nurses and infectious disease Given recent lengthy hospitalization we will get a chest x-ray to rule out pneumonia Respiratory PCR swab positive for acute COVID-19 Discussed supportive care and antivirals Of note, some information is being carried forward from prior records for informational purposes only and is being cited so that efficiency, safety and quality of the patient's care is not compromised This note was prepared using voice recognition software and direct typing Please excuse inadvertent cheesemaking laborer or typing errors, or uncorrected word substitutions Although every attempt has been made by the provider to proofread this document, occasional misspellings and typographical errors may still be present Due to the previous pandemic, and the use of personal protective equipment (PPE) This may decrease voice recognition accuracy Inadvertent cheesemaking laborer errors may occur 05/06/2024 Acute COVID-19 (ICD-10 - U07.1) Continue IV vancomycin via PICC until June 10 Weekly CBC and CMP arrange through visiting nurses and infectious disease Given recent lengthy hospitalization we will get a chest x-ray to rule out pneumonia Respiratory PCR swab positive for acute COVID-19 Discussed supportive care and antivirals Of note, some information is being carried forward from prior records for informational purposes only and is being cited so that efficiency, safety and quality of the patient's care is not compromised This note was prepared using voice recognition software and direct typing Please excuse inadvertent cheesemaking laborer or typing errors, or uncorrected word substitutions Although every attempt has been made by the provider to proofread this document, occasional misspellings and typographical errors may still be present Due to the previous pandemic, and the use of personal protective equipment (PPE) This may decrease voice recognition accuracy Inadvertent cheesemaking laborer errors may occur 05/23/2024 Acute COVID-19 (ICD-10 - U07.1) Continue IV 2 g of ceftriaxone which was recently switched from vancomycin via PICC until June 10 Weekly CBC and CMP arrange through visiting nurses and infectious disease Will be seeing infectious disease again on June 16, recently saw them on May 19 We will work on short-term disability paperwork Of note, some information is being carried forward from prior records for informational purposes only and is being cited so that efficiency, safety and quality of the patient's care is not compromised This note was prepared using voice recognition software and direct typing Please excuse inadvertent cheesemaking laborer or typing errors, or uncorrected word substitutions Although every attempt has been made by the provider to proofread this document, occasional misspellings and typographical errors may still be present Due to the previous pandemic, and the use of personal protective equipment (PPE) This may decrease voice recognition accuracy Inadvertent cheesemaking laborer errors may occur 10/08/2024 Essential (primary) hypertension (ICD-10 - I10) Acute Concerns/Problem List: 10/08/2024 Will increase to 10 mg of Mounjaro Excellent glycemic control, A1c today 6.0 CKD stable, losartan 25 mg as well as SGLT2 Followed by nephrology _update mammography please Of note, some information is being carried forward from prior records for informational purposes only and is being cited so that efficiency, safety and quality of the patient's care is not compromised This note was prepared using voice recognition software and direct typing Please excuse inadvertent cheesemaking laborer or typing errors, or uncorrected word substitutions Although every attempt has been made by the provider to proofread this document, occasional misspellings and typographical errors may still be present Due to the previous pandemic, and the use of personal protective equipment (PPE) This may decrease voice recognition accuracy Inadvertent cheesemaking laborer errors may occur 07/08/2024 Essential (primary) hypertension (ICD-10 - I10) Acute Concerns/Problem List: 07/08/2024 Will increase Mounjaro to 7.5 mg Excellent glycemic control with A1c of 6.2 Other labs are stable tommorow Scheduled for MRI of the spine to reassess intraspinal epidural abscess and osteomyelitis PICC line still in place likely will be DC'd soon as long as her antibiotics are completed per infectious disease Of note, some information is being carried forward from prior records for informational purposes only and is being cited so that efficiency, safety and quality of the patient's care is not compromised This note was prepared using voice recognition software and direct typing Please excuse inadvertent cheesemaking laborer or typing errors, or uncorrected word substitutions Although every attempt has been made by the provider to proofread this document, occasional misspellings and typographical errors may still be present Due to the previous pandemic, and the use of personal protective equipment (PPE) This may decrease voice recognition accuracy Inadvertent cheesemaking laborer errors may occur 02/03/2025 Essential (primary) hypertension (ICD-10 - I10) Acute Concerns/Problem List: 02/03/2025 Cont.10 mg of Mounjaro Excellent glycemic control, A1c today 5.7 CKD stable, Farxiga 10mg Followed by nephrology _update bone density Hold off on losartan Mammography 11/2024, [facility], BIRADS-2 benign Will see her back in the fall with labs and a CPE Of note, some information is being carried forward from prior records for informational purposes only and is being cited so that efficiency, safety and quality of the patient's care is not compromised This note was prepared using voice recognition software and direct typing Please excuse inadvertent cheesemaking laborer or typing errors, or uncorrected word substitutions Although every attempt has been made by the provider to proofread this document, occasional misspellings and typographical errors may still be present Due to the previous pandemic, and the use of personal protective equipment (PPE) This may decrease voice recognition accuracy Inadvertent cheesemaking laborer errors may occur 02/03/2025 Chronic kidney disease, stage 3a (ICD-10 - N18.31) Acute Concerns/Problem List: 02/03/2025 Cont.10 mg of Mounjaro Excellent glycemic control, A1c today 5.7 CKD stable, Farxiga 10mg Followed by nephrology _update bone density Hold off on losartan Mammography 11/2024, [facility], BIRADS-2 benign Will see her back in the fall with labs and a CPE Of note, some information is being carried forward from prior records for informational purposes only and is being cited so that efficiency, safety and quality of the patient's care is not compromised This note was prepared using voice recognition software and direct typing Please excuse inadvertent cheesemaking laborer or typing errors, or uncorrected word substitutions Although every attempt has been made by the provider to proofread this document, occasional misspellings and typographical errors may still be present Due to the previous pandemic, and the use of personal protective equipment (PPE) This may decrease voice recognition accuracy Inadvertent cheesemaking laborer errors may occur 07/08/2024 Chronic kidney disease, stage 3a (ICD-10 - N18.31) Acute Concerns/Problem List: 07/08/2024 Will increase Mounjaro to 7.5 mg Excellent glycemic control with A1c of 6.2 Other labs are stable tommorow Scheduled for MRI of the spine to reassess intraspinal epidural abscess and osteomyelitis PICC line still in place likely will be DC'd soon as long as her antibiotics are completed per infectious disease Of note, some information is being carried forward from prior records for informational purposes only and is being cited so that efficiency, safety and quality of the patient's care is not compromised This note was prepared using voice recognition software and direct typing Please excuse inadvertent cheesemaking laborer or typing errors, or uncorrected word substitutions Although every attempt has been made by the provider to proofread this document, occasional misspellings and typographical errors may still be present Due to the previous pandemic, and the use of personal protective equipment (PPE) This may decrease voice recognition accuracy Inadvertent cheesemaking laborer errors may occur 10/08/2024 Chronic kidney disease, stage 3a (ICD-10 - N18.31) Acute Concerns/Problem List: 10/08/2024 Will increase to 10 mg of Mounjaro Excellent glycemic control, A1c today 6.0 CKD stable, losartan 25 mg as well as SGLT2 Followed by nephrology _update mammography please Of note, some information is being carried forward from prior records for informational purposes only and is being cited so that efficiency, safety and quality of the patient's care is not compromised This note was prepared using voice recognition software and direct typing Please excuse inadvertent cheesemaking laborer or typing errors, or uncorrected word substitutions Although every attempt has been made by the provider to proofread this document, occasional misspellings and typographical errors may still be present Due to the previous pandemic, and the use of personal protective equipment (PPE) This may decrease voice recognition accuracy Inadvertent cheesemaking laborer errors may occur 10/08/2024 Other specified bacterial agents as the cause of diseases classified elsewhere (ICD-10 - B96.89) Acute Concerns/Problem List: 10/08/2024 Will increase to 10 mg of Mounjaro Excellent glycemic control, A1c today 6.0 CKD stable, losartan 25 mg as well as SGLT2 Followed by nephrology _update mammography please Of note, some information is being carried forward from prior records for informational purposes only and is being cited so that efficiency, safety and quality of the patient's care is not compromised This note was prepared using voice recognition software and direct typing Please excuse inadvertent cheesemaking laborer or typing errors, or uncorrected word substitutions Although every attempt has been made by the provider to proofread this document, occasional misspellings and typographical errors may still be present Due to the previous pandemic, and the use of personal protective equipment (PPE) This may decrease voice recognition accuracy Inadvertent cheesemaking laborer errors may occur 07/08/2024 Renal cyst (ICD-10 - N28.1) Acute Concerns/Problem List: 07/08/2024 Will increase Mounjaro to 7.5 mg Excellent glycemic control with A1c of 6.2 Other labs are stable tommorow Scheduled for MRI of the spine to reassess intraspinal epidural abscess and osteomyelitis PICC line still in place likely will be DC'd soon as long as her antibiotics are completed per infectious disease Of note, some information is being carried forward from prior records for informational purposes only and is being cited so that efficiency, safety and quality of the patient's care is not compromised This note was prepared using voice recognition software and direct typing Please excuse inadvertent cheesemaking laborer or typing errors, or uncorrected word substitutions Although every attempt has been made by the provider to proofread this document, occasional misspellings and typographical errors may still be present Due to the previous pandemic, and the use of personal protective equipment (PPE) This may decrease voice recognition accuracy Inadvertent cheesemaking laborer errors may occur 02/03/2025 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) Acute Concerns/Problem List: 02/03/2025 Cont.10 mg of Mounjaro Excellent glycemic control, A1c today 5.7 CKD stable, Farxiga 10mg Followed by nephrology _update bone density Hold off on losartan Mammography 11/2024, [facility], BIRADS-2 benign Will see her back in the fall with labs and a CPE Of note, some information is being carried forward from prior records for informational purposes only and is being cited so that efficiency, safety and quality of the patient's care is not compromised This note was prepared using voice recognition software and direct typing Please excuse inadvertent cheesemaking laborer or typing errors, or uncorrected word substitutions Although every attempt has been made by the provider to proofread this document, occasional misspellings and typographical errors may still be present Due to the previous pandemic, and the use of personal protective equipment (PPE) This may decrease voice recognition accuracy Inadvertent cheesemaking laborer errors may occur 02/03/2025 Encounter for examination of blood pressure without abnormal findings (ICD-10 - Z01.30) Acute Concerns/Problem List: 02/03/2025 Cont.10 mg of Mounjaro Excellent glycemic control, A1c today 5.7 CKD stable, Farxiga 10mg Followed by nephrology _update bone density Hold off on losartan Mammography 11/2024, [facility], BIRADS-2 benign Will see her back in the fall with labs and a CPE Of note, some information is being carried forward from prior records for informational purposes only and is being cited so that efficiency, safety and quality of the patient's care is not compromised This note was prepared using voice recognition software and direct typing Please excuse inadvertent cheesemaking laborer or typing errors, or uncorrected word substitutions Although every attempt has been made by the provider to proofread this document, occasional misspellings and typographical errors may still be present Due to the previous pandemic, and the use of personal protective equipment (PPE) This may decrease voice recognition accuracy Inadvertent cheesemaking laborer errors may occur 07/08/2024 Peripherally inserted central catheter (PICC) in place (ICD-10 - Z45.2) Acute Concerns/Problem List: 07/08/2024 Will increase Mounjaro to 7.5 mg Excellent glycemic control with A1c of 6.2 Other labs are stable tommorow Scheduled for MRI of the spine to reassess intraspinal epidural abscess and osteomyelitis PICC line still in place likely will be DC'd soon as long as her antibiotics are completed per infectious disease Of note, some information is being carried forward from prior records for informational purposes only and is being cited so that efficiency, safety and quality of the patient's care is not compromised This note was prepared using voice recognition software and direct typing Please excuse inadvertent cheesemaking laborer or typing errors, or uncorrected word substitutions Although every attempt has been made by the provider to proofread this document, occasional misspellings and typographical errors may still be present Due to the previous pandemic, and the use of personal protective equipment (PPE) This may decrease voice recognition accuracy Inadvertent cheesemaking laborer errors may occur 10/08/2024 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) Acute Concerns/Problem List: 10/08/2024 Will increase to 10 mg of Mounjaro Excellent glycemic control, A1c today 6.0 CKD stable, losartan 25 mg as well as SGLT2 Followed by nephrology _update mammography please Of note, some information is being carried forward from prior records for informational purposes only and is being cited so that efficiency, safety and quality of the patient's care is not compromised This note was prepared using voice recognition software and direct typing Please excuse inadvertent cheesemaking laborer or typing errors, or uncorrected word substitutions Although every attempt has been made by the provider to proofread this document, occasional misspellings and typographical errors may still be present Due to the previous pandemic, and the use of personal protective equipment (PPE) This may decrease voice recognition accuracy Inadvertent cheesemaking laborer errors may occur 07/08/2024 Other specified bacterial agents as the cause of diseases classified elsewhere (ICD-10 - B96.89) Acute Concerns/Problem List: 07/08/2024 Will increase Mounjaro to 7.5 mg Excellent glycemic control with A1c of 6.2 Other labs are stable tommorow Scheduled for MRI of the spine to reassess intraspinal epidural abscess and osteomyelitis PICC line still in place likely will be DC'd soon as long as her antibiotics are completed per infectious disease Of note, some information is being carried forward from prior records for informational purposes only and is being cited so that efficiency, safety and quality of the patient's care is not compromised This note was prepared using voice recognition software and direct typing Please excuse inadvertent cheesemaking laborer or typing errors, or uncorrected word substitutions Although every attempt has been made by the provider to proofread this document, occasional misspellings and typographical errors may still be present Due to the previous pandemic, and the use of personal protective equipment (PPE) This may decrease voice recognition accuracy Inadvertent cheesemaking laborer errors may occur 02/03/2025 Breast cancer screening by mammogram (ICD-10 - Z12.31) Acute Concerns/Problem List: 02/03/2025 Cont.10 mg of Mounjaro Excellent glycemic control, A1c today 5.7 CKD stable, Farxiga 10mg Followed by nephrology _update bone density Hold off on losartan Mammography 11/2024, [facility], BIRADS-2 benign Will see her back in the fall with labs and a CPE Of note, some information is being carried forward from prior records for informational purposes only and is being cited so that efficiency, safety and quality of the patient's care is not compromised This note was prepared using voice recognition software and direct typing Please excuse inadvertent cheesemaking laborer or typing errors, or uncorrected word substitutions Although every attempt has been made by the provider to proofread this document, occasional misspellings and typographical errors may still be present Due to the previous pandemic, and the use of personal protective equipment (PPE) This may decrease voice recognition accuracy Inadvertent cheesemaking laborer errors may occur 10/08/2024 Psoas abscess, right (ICD-10 - K68.12) Acute Concerns/Problem List: 10/08/2024 Will increase to 10 mg of Mounjaro Excellent glycemic control, A1c today 6.0 CKD stable, losartan 25 mg as well as SGLT2 Followed by nephrology _update mammography please Of note, some information is being carried forward from prior records for informational purposes only and is being cited so that efficiency, safety and quality of the patient's care is not compromised This note was prepared using voice recognition software and direct typing Please excuse inadvertent cheesemaking laborer or typing errors, or uncorrected word substitutions Although every attempt has been made by the provider to proofread this document, occasional misspellings and typographical errors may still be present Due to the previous pandemic, and the use of personal protective equipment (PPE) This may decrease voice recognition accuracy Inadvertent cheesemaking laborer errors may occur 02/03/2025 Encounter for screening for osteoporosis (ICD-10 - Z13.820) Acute Concerns/Problem List: 02/03/2025 Cont.10 mg of Mounjaro Excellent glycemic control, A1c today 5.7 CKD stable, Farxiga 10mg Followed by nephrology _update bone density Hold off on losartan Mammography 11/2024, [facility], BIRADS-2 benign Will see her back in the fall with labs and a CPE Of note, some information is being carried forward from prior records for informational purposes only and is being cited so that efficiency, safety and quality of the patient's care is not compromised This note was prepared using voice recognition software and direct typing Please excuse inadvertent cheesemaking laborer or typing errors, or uncorrected word substitutions Although every attempt has been made by the provider to proofread this document, occasional misspellings and typographical errors may still be present Due to the previous pandemic, and the use of personal protective equipment (PPE) This may decrease voice recognition accuracy Inadvertent cheesemaking laborer errors may occur 10/08/2024 Breast cancer screening by mammogram (ICD-10 - Z12.31) Acute Concerns/Problem List: 10/08/2024 Will increase to 10 mg of Mounjaro Excellent glycemic control, A1c today 6.0 CKD stable, losartan 25 mg as well as SGLT2 Followed by nephrology _update mammography please Of note, some information is being carried forward from prior records for informational purposes only and is being cited so that efficiency, safety and quality of the patient's care is not compromised This note was prepared using voice recognition software and direct typing Please excuse inadvertent cheesemaking laborer or typing errors, or uncorrected word substitutions Although every attempt has been made by the provider to proofread this document, occasional misspellings and typographical errors may still be present Due to the previous pandemic, and the use of personal protective equipment (PPE) This may decrease voice recognition accuracy Inadvertent cheesemaking laborer errors may occur 07/08/2024 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) Acute Concerns/Problem List: 07/08/2024 Will increase Mounjaro to 7.5 mg Excellent glycemic control with A1c of 6.2 Other labs are stable tommorow Scheduled for MRI of the spine to reassess intraspinal epidural abscess and osteomyelitis PICC line still in place likely will be DC'd soon as long as her antibiotics are completed per infectious disease Of note, some information is being carried forward from prior records for informational purposes only and is being cited so that efficiency, safety and quality of the patient's care is not compromised This note was prepared using voice recognition software and direct typing Please excuse inadvertent cheesemaking laborer or typing errors, or uncorrected word substitutions Although every attempt has been made by the provider to proofread this document, occasional misspellings and typographical errors may still be present Due to the previous pandemic, and the use of personal protective equipment (PPE) This may decrease voice recognition accuracy Inadvertent cheesemaking laborer errors may occur 07/08/2024 Psoas abscess, right (ICD-10 - K68.12) Acute Concerns/Problem List: 07/08/2024 Will increase Mounjaro to 7.5 mg Excellent glycemic control with A1c of 6.2 Other labs are stable tommorow Scheduled for MRI of the spine to reassess intraspinal epidural abscess and osteomyelitis PICC line still in place likely will be DC'd soon as long as her antibiotics are completed per infectious disease Of note, some information is being carried forward from prior records for informational purposes only and is being cited so that efficiency, safety and quality of the patient's care is not compromised This note was prepared using voice recognition software and direct typing Please excuse inadvertent cheesemaking laborer or typing errors, or uncorrected word substitutions Although every attempt has been made by the provider to proofread this document, occasional misspellings and typographical errors may still be present Due to the previous pandemic, and the use of personal protective equipment (PPE) This may decrease voice recognition accuracy Inadvertent cheesemaking laborer errors may occur 04/29/2024 Acute Concerns/Problem List: 04/29/2024 _update labs Patient is doing well on Mounjaro 7.5mg Endorses decreased appetite suppression and recent decreased activity level WIll increase Mounjaro to 10mg when available Renal U/S Reviewed Euglycemic She seems to be responding well SGLT-2, and GLP/GIP She denies any hypoglycemic events She could not tolerate her atorvastatin and the vasceppa doing well on coenzyme Q 10, and Crestor as well as fenofibrate given her elevated ASCVD risk CPE and updated labs in 3 months We discussed in detail the management of diabetes mellitus. Emphasis was paid on nutrition, low carbohydrate diet with good fat and protein sources, fruits and vegetables was discussed. Exercise was recommended. Incorporation of daily walking into a routine was discussed. A pedometer goal of 10,000 steps was discussed. Management of diabetes mellitus along with medications to treat the condition was discussed. Importance of diabetic foot exam, diabetic eye exam, urine microalbumin analysis annually was discussed. Side effects of diabetic medications were discussed again. Patient agrees to take medications as prescribed and comply with lifestyle modifications. Reviewed with patient the importance of medication and treatment plan compliance with BP goal of less then 140/90 per JNC 8 guidelines based on patient's age. This will ensure optimal health outcomes and prevent target organ damage. Made aware that uncontrolled hypertension may be silent and result in a stroke, heart attack, renal failure or even . Discussed the rationale for individualized medication regimen and the effects of their BP. Instructed to seek emergent care if the patient develops a headache, blurry vision, dizziness, chest pain or pressure. Chronic kidney disease is usually silent Typical causes include diabetes and high blood pressure as well as dehydration If you have these issues, please make sure that there tightly controlled Ask your PCP what your blood pressure and hemoglobin A1c target should be in no your numbers Blood pressure recordings and sugar recordings should also be discussed Chronic kidney disease are at high risk for cardiovascular events including stroke, [place] As well as complications from infections, therefore immunizations are important The best way to monitor kidney function is through blood and urine test You should have these test done periodically If it is best if you complete the test a week or 2 before your visit with your primary care or family therapist So that the most recent data can be discussed at your visit You should keep accurate medication lists The use of nonsteroidal anti-inflammatory drugs (NSAIDS) should be avoided and cautioned The best diet for people with hypertension and chronic kidney disease include balanced Mediterranean style diet, or DASH Which limit sodium intake below 2000 mg a day, limiting carbohydrate intake under 250 g a day and avoiding simple sugars and sweets Limit consumption of alcohol Caffeine in moderation such as 1-2 cups of regular coffee a day is okay Of note, some information is being carried forward from prior records for informational purposes only and is being cited so that efficiency, safety and quality of the patient's care is not compromised This note was prepared using voice recognition software and direct typing Please excuse inadvertent cheesemaking laborer or typing errors, or uncorrected word substitutions Although every attempt has been made by the provider to proofread this document, occasional misspellings and typographical errors may still be present Due to the previous pandemic, and the use of personal protective equipment (PPE) This may decrease voice recognition accuracy Inadvertent cheesemaking laborer errors may occur 06/20/2024 Continue IV 2 g of ceftriaxone which was recently switched from vancomycin via PICC until June 10 Weekly CBC and CMP arrange through visiting nurses and infectious disease Will be seeing infectious disease again on June 16, recently saw them on May 19 We will work on short-term disability paperwork FMLA paperwork was completed today Time spent 30 minutes Coordination of care, chart review, paperwork filled out and filed in EMR Of note, some information is being carried forward from prior records for informational purposes only and is being cited so that efficiency, safety and quality of the patient's care is not compromised This note was prepared using voice recognition software and direct typing Please excuse inadvertent cheesemaking laborer or typing errors, or uncorrected word substitutions Although every attempt has been made by the provider to proofread this document, occasional misspellings and typographical errors may still be present Due to the previous pandemic, and the use of personal protective equipment (PPE) This may decrease voice recognition accuracy Inadvertent cheesemaking laborer errors may occur Plan Of Treatment Pending Test Test Name Order Date Mammogram 10/08/2024 Bone Density 02/03/2025 Ultrasound : Renal 02/21/2023 25OH VITAMIN D 12/13/2021 CBC (COMPLETE BLOOD COUNT) 12/13/2021 COMPREHENSIVE METABOLIC PANEL 12/13/2021 HEMOGLOBIN A1C 12/13/2021 HEMOGLOBIN A1C 03/14/2022 LIPID PANEL 03/14/2022 LIPID PANEL 12/13/2021 TSH 12/13/2021 Chest 2 Views Frontal and Lat 05/06/2024 ALT/SGPT 03/14/2022 AST/SGOT 03/14/2022 LIPID PANEL, STANDARD 02/03/2025 LIPID PANEL, STANDARD 11/27/2023 COMPREHENSIVE METABOLIC PANEL 11/27/2023 COMPREHENSIVE METABOLIC PANEL 02/03/2025 CBC (INCLUDES DIFF/PLT) 02/03/2025 CBC (INCLUDES DIFF/PLT) 11/27/2023 URINALYSIS, COMPLETE 11/27/2023 URINALYSIS, COMPLETE 02/03/2025 HEMOGLOBIN A1c 02/03/2025 HEMOGLOBIN A1c 11/27/2023 TSH 11/27/2023 TSH 02/03/2025 VITAMIN D,25-OH,TOTAL,IA 02/03/2025 VITAMIN D, 1,25 DIHYDROXY LC/MS/MS 11/26 COMPLETE URINALYSIS 12/13/2021 US Renal 03/04/2023 Future Test Test Name Order Date 25OH VITAMIN D 02/21/2023 CBC (COMPLETE BLOOD COUNT) WITH DIFF 04/2023 COMPREHENSIVE METABOLIC PANEL 02/21/2023 HEMOGLOBIN A1C 02/21/2023 LIPID PANEL 02/21/2023 MICROALBUMIN, URINE 02/21/2023 TSH WITH REFLEX TO FT4 02/21/2023 URINALYSIS W/REFLEX CULTURE 02/21/2023 Next Appt Details Provider Name:ERIC RODAS, 07/07/2025 02:00:00 PM, [address] [facility], [facility] [address], [place], [address], Insurance Providers Payer Name Payer Address Payer Phone Subscriber Number Group Number Insured Name Patient Relationship to Insured Coverage Start Date Coverage End Date Ronn [address] [place] [address] [phone] [id number] RAJESH GAGE Self - patient is the insured 5 Medical (General) History Medical History History ICD Code hypertension anxiety weight gain/loss migraine headaches gastroesophageal reflux disease (GERD) Surgical History Surgery Date(Month/Year) cholecystectomy herniated disc in neck surgery uterine ablation
--- OUTSIDE RECORDS SUMMARY | 2025-04-29 09:47 | XMS_ITS | Clinical Summary ---
Author Organization [facility] Address [address] [place] [address] Care Team Providers Care Technical Professional Name Role Phone Puneet Hurley CLIENT SOLUTIONS MANAGER Primary Care Provider Allergies Active Allergy Reactions Criticality Noted Date Comments Icosapent Ethyl (Epa Ethyl Yeny) (Fish) Other (See Comments) 09/27/2022 Dizziness Medications hydrochlorothiaz josephine (MICROZIDE) 12.5 MG capsule Take 12.5 mg by mouth daily. Active pregabalin (LYRICA) 75 MG capsule Take 75 mg by mouth 2 (two) times a day. Active cyclobenzaprine (FLEXERIL) 10 MG tablet Take 10 mg by mouth 3 times daily (every 8 hours) as needed for muscle spasms. Active citalopram (CeleXA) 20 MG tablet Take 20 mg by mouth daily. Active amitriptyline (ELAVIL) 25 MG tablet Take 25 mg by mouth nightly. Active PANTOprazole (PROTONIX) 40 MG EC tablet Take 40 mg by mouth every morning before breakfast. Active benzonatate (TESSALON) 200 MG capsuleIndicatio ns:Acute bronchitis, unspecified organism Take 1 capsule (200 mg total) by mouth 3 (three) times a day as needed for cough. 20 capsule 10/27/2021 Active proMETHAZINE-dex tromethorphan (proMETHAZINE-DM ) 6.25-15 MG/5ML syrupIndications :Acute bronchitis, unspecified organism Take 5 mL by mouth 4 times daily (every 6 hours) as needed for cough. 120 mL 10/27/2021 Active Active Problems No known active problems Social History Tobacco Use Types Packs/Day Years Used Date Smoking Tobacco: Never Assessed Comments Unknown Sex and Gender Information Value Date Recorded Sex Assigned at Female 11/11/2022 1:14 PM EST Legal Sex Female 7:14 PM EST Gender Identity Female 11/11/2022 1:14 PM EST Sexual Orientation Choose not to disclose 2022 1:14 PM EST Last Filed Vital Signs Vital Sign Reading Time Taken Comments Blood Pressure 126/80 11/11/2022 2:37 PM EST Pulse 91 11/11/2022 2:37 PM EST Temperature 37 C (98.6 F) 11/11/2022 2:37 PM EST Respiratory Rate 18 11/11/2022 2:37 PM EST Oxygen Saturation 100% 11/11/2022 2:37 PM EST Inhaled Oxygen Concentration - - Weight - - Height - - Body Mass Index - - Plan of Treatment Health Maintenance Due Date Last Done Comments Hepatitis C Virus Screening 1964 HIV Screening 1977 DTaP/Tdap/Td Vaccines (1 - Tdap) 1983 Pap Smear (Ages 21-65) 1985 Mammogram 2004 Colonoscopy 2009 Pneumococcal Vaccines 50+ (1 of 1 - PCV) 2014 Zoster (Shingles) Vaccine (1 of 2) 2014 COVID-19 Vaccine (2 - 2023-2 5 season) 2024 06/30/2022 Influenza Vaccine 04/16/2025 06/25/2020, 06/25/2020 RSV Vaccine 60 years and older and Patients (1 - 1-dose 75+ series) 2039 Hepatitis B Vaccines Aged Out No long er eligible based on patient's age to complete this topic Insurance [facility] H[facility] Care Teams Technical Professional Relationship Specialty Start Date End Date Puneet Hurley, TC PCP - General Medicine Hospitalist 10/17/22
== END 2025-04-29 09:51 | disposition home or self-care (01) ==
LOC: HO.HSM 09:19
PROVIDERS: PCP Family Medicine; Referring Provider Family Medicine; Visit Provider Psychiatry & Neurology Neurology
DX: M47.812 Spondylosis without myelopathy or radiculopathy, cervical region (principal); M54.12 Radiculopathy, cervical region
CPT/HCPCS: 99214